=== PATIENT | female | born 1985 | race Caucasian/White ===

== ENCOUNTER 2019-01-23 05:34 | Day surgery (SDC) | payer BC, OTHER ==
[2019-01-16 18:35] VITALS: BMI 38.4
[2019-01-23] MEDS ORDERED: ONDANSETRON 4 MG/2 ML VIAL IVPUSH PRN ×2 (08:24→09:43)
[2019-01-23] MEDS ORDERED: LACTATED RINGERS SOLUTION 1,000 ML IV SCH (08:30)
[2019-01-23] MEDS ORDERED: MIDAZOLAM HCL 2 MG/2 ML SINGLE DOSE VIAL ONE (08:42)
[2019-01-23] MEDS ORDERED: PROPOFOL 20 ML ONE (08:51)
[2019-01-23] MEDS ORDERED: BACITRACIN 15 GM TUBE TOPICAL OINTMENT ONE (09:07)
[2019-01-23] MEDS ORDERED: BACITRACIN 15 GM TUBE TOPICAL OINTMENT TP ONE (09:08)
[2019-01-23] MEDS ORDERED: ACETAMINOPHEN INJECTION 100 ML IVPB ONE (09:41)
[2019-01-23] MEDS ORDERED: IBUPROFEN 600 MG TABLET (FP) PO PRN (09:43)
[2019-01-23] MEDS ORDERED: oxyCODONE HCL 5 MG TABLET PO PRN (09:43)
[2019-01-23] MEDS ORDERED: IBUPROFEN 800 MG/8 ML IJ IVPB PRN (09:43)
[2019-01-23] MEDS ORDERED: ELECTROLYTE-148 SOLN 1,000 ML IV SCH (09:45)
--- NOTE | 2019-01-23 09:52 | HP ---
History & Physical Update - History History: No Change - Physical Physical: No Change - Assessment Assessment: No Change - Plan Plan: No Change (History reviewed and no changes identifide consent signed)
[2019-01-23] MEDS ORDERED: ACETAMINOPHEN 1000 MG/100 ML VIAL (NON FORMULARY) IVPB ONE (09:54)
--- NOTE | 2019-01-23 09:56 | OP ---
Operative Note - Note: Operative Date: 01/23/19 Pre-Operative Diagnosis: 33yo PO with Recurrent Left Bartholin cyst Operation: Left Bartholin Cyst Marsupilizatiom Findings: Brown, foul smelling 10cc fluid filled Bartholin's gland cyst Post-Operative Diagnosis: Same as Pre-op Surgeon: Lisa Gallego Anesthesiologist/MATERIAL EXPEDITER: Fawad Díaz Anesthesia: MAC Specimens Removed: None Estimated Blood Loss (mls): 1 Drains, Volume Out (mls): 10 Fluid Volume Replaced (mls): 200 Operative Report Dictated: Yes
[2019-01-23 10:40] VITALS: TEMP 97.5
[2019-01-23 11:47] VITALS: BP 122/68; PULSE 63
--- NOTE | 2019-01-23 12:58 | OP ---
DATE OF OPERATION: 01/23/2019 PREOPERATIVE DIAGNOSIS: A 33-year-old para 0 with recurrence of Bartholins cyst. OPERATION: Left Bartholins cyst marsupialization. FINDINGS: Brown foul-smelling 10-mL fluid-filled Bartholins gland cyst. PREOPERATIVE DIAGNOSIS: A 33-year-old para 0 with recurrence of Bartholins cyst. SURGEON: Lisa Gallego MD ANESTHESIOLOGIST: Fawad Díaz MD ANESTHESIA: MAC. DESCRIPTION OF THE OPERATIVE PROCEDURE: After ensuring informed consent, patient was brought to the operating room where she was placed in dorsal lithotomy position. Perineum and vagina were prepped and draped in sterile fashion. The left labia minora was tented with Allis clamp, and at the mucocutaneous junction, a 15 blade was used to create approximately 8-mm opening. Copious amount of brown foul-smelling fluid surged from the open cyst. Cyst was copiously irrigated with sterile normal saline. The edges of the incision were everted and sutured openly with 2-0 Vicryl stitches to the surrounding labia. Excellent hemostasis was achieved. Four sutures placed. The gauze with Bacitracin was used to apply to the open incision. Estimated blood loss was 1 mL. Uterine out 10 mL. Patient received 200 mL of IV fluids. Patient tolerated the procedure well. Instrument and sponge count was correct x2. Patient was brought to the recovery room in stable condition. Freddy [id number]
== END 2019-01-23 11:46 | disposition home or self-care (01) ==
LOC: JASU-SURG 05:34
PROVIDERS: ATTEND Obstetrics & Gynecology
PROC: 0U9L0ZZ Drainage of Vestibular Gland, Open Approach (ICD-10-PCS; principal; 2019-01-23 09:00)
DX: N75.0 Cyst of Bartholin's gland (principal)
CPT/HCPCS: 84703; 87070; 87205; 94760; J0131

== ENCOUNTER 2023-04-26 03:58 | Day surgery (SDC) | payer BC, OTHER ==
[2023-04-22 13:03] VITALS: BMI 40.6
[2023-04-26 06:53] LABS: PH,URINE 5.5 (5.0-8.0); URINE APPEARANCE Error; URINE BILIRUBIN NEGATIVE (NEGATIVE); URINE COLOR YELLOW; URINE GLUCOSE (UA) NEGATIVE (NEGATIVE); URINE KETONE NEGATIVE (NEGATIVE); URINE LEUK ESTERASE NEGATIVE (NEGATIVE); URINE NITRITE NEGATIVE (NEGATIVE); URINE PROTEIN NEGATIVE (NEGATIVE); URINE UROBILINOGEN 0.2 mg/dL (0.2-1.0)
[2023-04-26] MEDS ORDERED: SUCCINYLCHOLINE CHLORIDE 200 MG/10 ML SYRINGE ONE (07:23)
[2023-04-26] MEDS ORDERED: MIDAZOLAM HCL 2 MG/2 ML SINGLE DOSE VIAL ONE (07:23)
[2023-04-26] MEDS ORDERED: PROPOFOL 40 ML ONE (07:23)
[2023-04-26] MEDS ORDERED: LIDOCAINE HCL/PF 2% SDV 5ML VIAL ONE (07:24)
[2023-04-26] MEDS ORDERED: ONDANSETRON 4 MG/2 ML VIAL IVPUSH PRN ×2 (07:48→08:52)
[2023-04-26] MEDS ORDERED: IBUPROFEN 600 MG TABLET (FP) PO PRN (07:48)
[2023-04-26] MEDS ORDERED: IBUPROFEN 800 MG/8 ML IJ IVPB PRN (07:48)
[2023-04-26] MEDS ORDERED: oxyCODONE HCL 5 MG TABLET PO PRN (07:48)
[2023-04-26] MEDS ORDERED: ELECTROLYTE-148 SOLN 1,000 ML IV SCH (08:00)
[2023-04-26] MEDS ORDERED: DEXAMETHASONE SOD PHOSPHATE 4 MG/1 ML VIAL ONE (08:02)
[2023-04-26] MEDS ORDERED: ACETAMINOPHEN 1000 MG/100 ML BAG IVPB ONE (08:53)
[2023-04-26] MEDS ORDERED: LACTATED RINGERS SOLUTION 1,000 ML IV SCH (09:00)
[2023-04-26] MEDS ORDERED: IBUPROFEN 800 MG/8 ML IJ IVPB ONE (10:31)
[2023-04-26 11:39] VITALS: RESP 18
[2023-04-26 14:37] VITALS: BP 121/69; PULSE 88; TEMP 97.6
== END 2023-04-26 14:20 | disposition home or self-care (01) ==
LOC: JASU-SURG 03:58
PROVIDERS: ATTEND Obstetrics & Gynecology
PROC: 0UB98ZZ Excision of Uterus, Via Natural or Artificial Opening Endoscopic (ICD-10-PCS; principal; 2023-04-26 07:30)
DX: N92.0 Excessive and frequent menstruation with regular cycle (principal); D25.0 Submucous leiomyoma of uterus
CPT/HCPCS: 81003; 84703; 87086; 88305-TC; 94760

== ENCOUNTER 2024-05-08 12:30 | Inpatient (IN) | payer BC, OTHER ==
[2024-05-07 14:36] VITALS: BMI 42.0
[2024-05-15] MEDS ORDERED: oxyCODONE HCL 5 MG TABLET PO PRN (08:12)
[2024-05-15] MEDS ORDERED: ONDANSETRON 4 MG/2 ML VIAL IVPUSH PRN ×2 (08:12→09:37)
[2024-05-15] MEDS ORDERED: ACETAMINOPHEN INJECTION 100 ML IVPB ONE (08:33)
[2024-05-15] MEDS ORDERED: MIDAZOLAM HCL 2 MG/2 ML SINGLE DOSE VIAL ONE (08:38)
[2024-05-15] MEDS ORDERED: PROPOFOL 20 ML ONE (08:48)
[2024-05-15] MEDS ORDERED: SUGAMMADEX SODIUM 200 MG/2 ML VIAL ONE (08:56)
[2024-05-15] MEDS ORDERED: KETOROLAC TROMETHAMINE 30 MG/1 ML VIAL ONE (08:56)
[2024-05-15] MEDS ORDERED: DEXAMETHASONE SOD PHOSPHATE 4 MG/1 ML VIAL ONE (08:56)
[2024-05-15] MEDS ORDERED: ceFAZolin SODIUM 1 GM VIAL ONE (08:56)
[2024-05-15] MEDS ORDERED: LIDOCAINE HCL/PF 2% SDV 5ML VIAL ONE (08:56)
[2024-05-15] MEDS ORDERED: KETAMINE HCL 200 MG/20 ML VIAL ONE (08:57)
[2024-05-15] MEDS ORDERED: TRIAMCINOLONE ACET 40MG/1ML VIAL ONE (08:58)
[2024-05-15] MEDS ORDERED: GLYCOPYRROLATE 0.2 MG/1 ML VIAL ONE (09:09)
[2024-05-15] MEDS ORDERED: MAGNESIUM SULF 50% (8.12 MEQ/2 ML-1 GM VIAL) ONE (09:11)
[2024-05-15] MEDS ORDERED: PROPOFOL 80 ML ONE (09:12)
[2024-05-15] MEDS: ceFAZolin SODIUM 1 GM VIAL IVPB ONE (09:15)
[2024-05-15] MEDS ORDERED: HYDROmorphone HCl 2 MG/ML VIAL ONE (09:35)
[2024-05-15] MEDS ORDERED: ROCURONIUM BROMIDE 50 MG/5 ML SYRINGE ONE (09:44)
[2024-05-15] MEDS ORDERED: SUCCINYLCHOLINE CHLORIDE 200 MG/10 ML SYRINGE ONE (09:44)
[2024-05-15] MEDS ORDERED: HYDROmorphone HCL CARPU-JECT 2 MG/1 ML DISP.SYRIN ONE (12:39)
[2024-05-15] MEDS: HYDROmorphone HCl 2 MG/ML VIAL IVPUSH PRN (12:42)
[2024-05-15] MEDS: ELECTROLYTE-148 SOLN 1,000 ML IV SCH (12:52)
[2024-05-15] MEDS: CEFAZOLIN 2 GM in DEXTROSE 5%-WATER - 100 ML IVPB SCH (12:53)
[2024-05-15] MEDS: LACTATED RINGERS SOLUTION 1,000 ML IV SCH (12:54)
[2024-05-15] MEDS: ACETAMINOPHEN 1000 MG/100 ML BAG IVPB ONE (16:59)
[2024-05-15] MEDS: HYDROmorphone *PCA* 10MG/50ML DISP.SYRIN PCA SCH (17:57)
[2024-05-15] MEDS: CEFAZOLIN SODIUM 2 GM in DEXTROSE 5%-WATER 100 ML IVPB SCH (18:36)
[2024-05-16 07:27] LABS: HEMATOCRIT 26.2 % (32.4-45.2); HEMOGLOBIN 8.6 GM/dL (10.7-15.3); MCH 27.7 pg (25.7-33.7); MCHC 32.8 g/dl (32.0-36.0); MEAN CELL VOLUME 84.6 fl (80-96); MEAN PLT VOLUME 8.6 fl (7.5-11.1); PLATELET COUNT 290 10^3/uL (134-434); RDW 14.4 % (11.6-15.6); WHITE BLOOD COUNT 13.1 K/mm3 (4.0-10.0)
[2024-05-16] MEDS: ENOXAPARIN NA (PORCINE) 40 MG/0.4 ML DISP.SYRIN SQ SCH (09:45)
[2024-05-16] MEDS: ACETAMINOPHEN 1000 MG/100 ML BAG IVPB PRN (11:31)
[2024-05-16] MEDS: IBUPROFEN 800 MG/8 ML IJ IVPB PRN ×2 (15:12→22:45)
[2024-05-17] MEDS: IBUPROFEN 600 MG TABLET (FP) PO PRN (09:25)
[2024-05-17 10:38] VITALS: BP 137/86; PULSE 69; RESP 22; TEMP 98.3
[2024-05-17] MEDS: BISACODYL 10 MG SUPP.RECT PR ONE (11:38)
== END 2024-05-17 13:00 | disposition home or self-care (01) | DRG 743 ==
LOC: J2C 05-15 04:20 → J3W 05-15 13:32
PROVIDERS: ADMIT Obstetrics & Gynecology; ATTEND Obstetrics & Gynecology
PROC: 0UT70ZZ Resection of Bilateral Fallopian Tubes, Open Approach (ICD-10-PCS; 2024-05-15)
PROC: 0UT90ZL Resection of Uterus, Supracervical, Open Approach (ICD-10-PCS; principal; 2024-05-15 08:00)
DX: D25.9 Leiomyoma of uterus, unspecified (principal); N92.0 Excessive and frequent menstruation with regular cycle
CPT/HCPCS: 36415; 81025; 85027; 86850; 86900; 86901; 88305-TC; 88307-TC; 94760; J0131